=== PATIENT | female | born 1995 | race Caucasian/White ===

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

== ENCOUNTER 2017-10-20 19:39 | Emergency (ER) | payer OTHER ==
[2017-10-20 19:46] VITALS: RESP 18
[2017-10-20] MEDS ORDERED: ONDANSETRON 4 MG/2 ML VIAL IVP ONE ×2 (20:14→21:05)
[2017-10-20] MEDS ORDERED: NS 1,000 ML IV ONE ×2 (20:14→20:42)
[2017-10-20] MEDS ORDERED: ONDANSETRON 4 MG/2 ML VIAL ONE (20:15)
[2017-10-20 20:20] LABS: PLATELET COUNT 312 10^3/uL (150-400)
--- NOTE | 2017-10-20 20:31 | EDPHY ---
H & P Smoking Status: Never smoked Time Seen by Provider: 10/20/17 20:25 HPI/ROS: Chief complaint. Abdominal pain HPI. 22-year-old female presents emergency department with complaint of difficulty urinating for 1 week. She sits on the toilet and nothing happens. She tells me she lost sensation to urinate 7 years ago and needs to urinate on a regular schedule. She had nausea last night. She noticed abdominal bloating this morning. She gradually developed abdominal pain during the day and vomiting. Pain is crampy periumbilical. No diarrhea. She has been constipated. No fever. No chest pain or shortness of breath. ROS Constitutional. no fever/chills, no weakness Eyes. no problems with vision ENT. no sore throat, no nasal drainage Cardiovascular. no chest pain Respiratory. no shortness of breath, no cough Abdominal. Abdominal pain and bloating with nausea and vomiting. Constipation. . Difficulty urinating MS. no calf pain/swelling, no neck/back pain, no joint pain Skin. no rash Lymph. no swollen glands Neuro. no headache, no dizziness, no difficulty walking or with speech (Marquez Lara S) Past Medical/Surgical History: Gastric paresis, GERD, biopsies of stomach (Marquez Lara S) Social History: Single, nonsmoker, no alcohol (Marquez Lara) Physical Exam: General Appearance: Alert well-developed female mild distress vital signs are stable Eyes: Pupils equal and round no pallor or injection. ENT, Mouth: Mucous membranes are moist. Respiratory: There are no retractions, lungs are clear to auscultation. Cardiovascular: Regular rate and rhythm. Gastrointestinal: Abdomen is soft. Periumbilical tenderness. Not particularly tender at McBurney's point. Bowel sounds normal. No masses Neurological: Awake and alert, sensory and motor exams grossly normal. Skin: Warm and dry, no rashes. Musculoskeletal: Neck is supple nontender. Extremities symmetrical, full range of motion. Psychiatric: Patient is oriented X 3, there is no agitation. (Marquez Lara S) Constitutional: Initial Vital Signs Temperature (C) 37.0 C 10/20/17 19:44 Heart Rate 91 10/20/17 19:44 Respiratory Rate 18 10/20/17 19:44 Blood Pressure 126/90 H 10/20/17 19:44 O2 Sat (%) 98 10/20/17 19:44 O2 Delivery Mode Room Air Allergies/Adverse Reactions: fentanyl Allergy (Verified 09/01/16 17:48) Home Medications: Medication Instructions Recorded Control 10/20/17 Cephalexin [Keflex (*)] 500 mg PO Q6H #28 cap 10/20/17 Medical Decision Making - Diagnostics Imaging Results: Upright abdomen shows constipation. No evidence for free air or air-fluid levels. (Marquez Lara) Procedures: IV normal saline. Initial target 2 L. Zofran for nausea (Marquez Lara) ED Course/Re-evaluation: 11:21 p.m.- UA does show evidence of urinary tract infection. I will treat her with Keflex. He will send her urine for culture testing and she can be discharged. ( Ro Heath) Re-evaluation 9:25 p.m. Patient and I discussed x-ray findings, laboratory evaluation, treatment plan including criteria for return importance of follow- up and further evaluation. She expresses understanding and agreement Patient up to urinate. (Marquez Lara) Differential Diagnosis: I considered constipation, urinary tract infection, small-bowel obstruction ( Marquez Lara) - Data Points Laboratory Results: Laboratory Results 10/20/17 20:00 10/20/17 20:00 Microbiology Results: MICROBIOLOGY 10/20/17 21:35 Urine,Catheterized Urine Culture - Preliminary Five Or More [place] Types Staphylococcus Aureus Medications Given: Discontinued Medications Cephalexin (Keflex 500 Mg Prepack#4) 1 btl TAKEHOME EDNOW ONE PRN Reason: Protocol Stop: 10/20/17 23:21 Last Admin: 10/20/17 23:59 Dose: 1 btl Cephalexin HCl (Keflex) 500 mg PO EDNOW ONE PRN Reason: Protocol Stop: 10/20/17 23:21 Last Admin: 10/20/17 23:58 Dose: 500 mg Sodium Chloride (Ns) 1,000 mls @ 3,000 mls/hr IV ONCE ONE Stop: 10/20/17 20:33 Last Admin: 10/20/17 20:16 Dose: 1,000 mls Sodium Chloride (Ns) 1,000 mls @ 0 mls/hr IV EDNOW ONE; Wide Open PRN Reason: Protocol Stop: 10/20/17 20:43 Last Admin: 10/20/17 20:48 Dose: 1,000 mls Ondansetron HCl (Zofran) 4 mg IVP EDNOW ONE Stop: 10/20/17 20:15 Last Admin: 10/20/17 20:17 Dose: 4 mg Ondansetron HCl (Zofran) 4 mg IVP EDNOW ONE Stop: 10/20/17 21:06 Last Admin: 10/20/17 21:07 Dose: 4 mg Departure - Departure Disposition: Home, Routine, Self-Care Clinical Impression: Abdominal pain, UTI (urinary tract infection) Condition: Good Instructions: Constipation (ED), Urinary Tract Infection in Women (DC), High Fiber Diet (ED) Additional Instructions: Increased fluids including fruit and prune juice. MiraLax, alexey Colace from the pharmacy. You may purchase a bottle of magnesium citrate from the grocery store without a prescription. Drink the whole bottle. Again increase fluids. Return for worsening pain, fever, vomiting. Recheck in 2 days if not improved Referrals: Kimberli Haynes MD [Primary Care Provider] - 1 day, if not improved Stand Alone Forms: School Excuse Prescriptions: Cephalexin [Keflex (*)] 500 mg PO Q6H #28 cap
[2017-10-20] MEDS ORDERED: CEPHALEXIN 500 MG CAP PO ONE (23:20)
[2017-10-20] MEDS ORDERED: CEPHALEXIN 500MG PREPACK#4 BTL TAKEHOME ONE (23:20)
[2017-10-21 00:11] VITALS: BP 105/55; PULSE 87; TEMP 98.6; O2SAT 96
== END 2017-10-21 00:11 | disposition home or self-care (01) ==
DX: R10.33 Periumbilical pain (principal); N39.0 Urinary tract infection, site not specified; E86.9 Volume depletion, unspecified; B95.7 Other staphylococcus as the cause of diseases classified elsewhere
CPT/HCPCS: 96374; J2405

== ENCOUNTER 2017-10-28 12:32 | Emergency (ER) | payer OTHER ==
[2017-10-28] MEDS ORDERED: ONDANSETRON 4 MG/2 ML VIAL IVP ONE (12:58)
[2017-10-28] MEDS ORDERED: NS 1,000 ML IV ONE (12:59)
[2017-10-28] MEDS ORDERED: FAMOTIDINE 20 MG/NACL 50 ML IV ONE (13:21)
--- NOTE | 2017-10-28 13:34 | EDPHY ---
H & P Time Seen by Provider: 10/28/17 12:54 HPI/ROS: HPI Nausea vomiting, history of urinary tract infection. 22-year-old female by private vehicle with boyfriend. This patient reports she was seen in the emergency department a week ago this last Thursday. She was diagnosed with gastroparesis which she has a history of as well as a urinary tract infection. She was placed on Keflex for the urinary tract infection. She reports that since this time she has had associated nausea and vomiting. She reports that she was seen by her primary care physician on Thursday with complaint of difficulty urinating. She was referred to [facility]. She was seen at [facility]. She does not remember the clinician she worked with. She reports that a Collazo catheter was placed. She reports that Collazo catheter was then removed yesterday. She reports that yesterday she had some intermittent hematuria. She reports that today she has had continued nausea and vomiting and has not been able to keep any fluids down. She called her primary care physician was told to come to the emergency department for evaluation. She describes having vague back pain as well as vague abdominal pain described as cramping in the lower abdomen as epigastric discomfort. She reports that she self catheterizes. She reports that since the Collazo catheter has been removed she has not been able to urinate on her own. She was instructed on this procedure by [facility]. She also tells me that possibly from a head injury when she was younger she has lost the ability to sense when her bladder is full and feel urgency to urinate. ROS: Constitutional: No fever, no chills. No weakness. Eyes: No discharge. No changes in vision. ENT: No sore throat. No nasal congestion or rhinorrhea. Respiratory: No cough. No shortness of breath. Cardiac: No chest pain, no palpitations. Gastrointestinal: As above, no diarrhea. Genitourinary: As above. No dysuria or increased frequency with urination. As above. Musculoskeletal: No back pain. No neck pain. No myalgias or arthralgias. Skin: No rashes. Neurological: No headache. No focal weakness or altered sensation. Past medical history: Gastroparesis, GERD, biopsies of her stomach, ACL reconstruction. As above. 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 She is here with her boyfriend. Denies smoking. Denies alcohol. Physical Exam: General Appearance: Alert, pleasant 22-year-old female, no distress. This patient is responding to questions appropriately and in full sentences. This patient appears well-hydrated and well-nourished. Eyes: Pupils equal and round no pallor or injection. No lid edema, erythema or injection. Respiratory: There are no retractions, lungs are clear to auscultation with good air movement bilaterally. Cardiovascular: Regular rate and rhythm. No murmur. Gastrointestinal: Abdomen is soft with vague and mild tenderness on palpation throughout, no masses, bowel sounds normal. No focal tenderness at McBurney's point. No Lora sign. Neurological: Motor sensory function is grossly intact. Cranial nerves are normal. Gait is normal. Skin: Warm and dry, no rashes. Musculoskeletal: Neck is supple and nontender. Mild CVA tenderness bilaterally. Extremities are symmetrical. All joints range without pain or impingement. Psychiatric: No agitation. No depression. Database: EKG: Imaging: Procedures: Emergency department course: IV placed. She was started on IV normal saline with 1-2 L to be given over the next 1-2 hours. She was initially given 4 mg of IV Zofran and 20 mg of IV Pepcid. Urinalysis to be obtained. Vital signs reviewed and are normal. She is afebrile. 2:55 p.m., patient re-evaluated. She is resting comfortably at this time. I discussed the results of her lab work. Her blood work and urinalysis are unremarkable. No red flags. No indication for antibiotics at this time. She has already spoken with her primary care physician who has reviewed her emergency department workup. She will follow up with her primary care physician for further evaluation and management as needed. She feels comfortable going home. Return to emergency department precautions have been discussed with her. All of her questions were answered. She was discharged in good condition. Her vital signs have remained normal throughout her emergency department course. Differential Diagnosis: The differential diagnosis on this patient includes but is not limited to urinary tract infection/pyelonephritis, gastritis, pancreatitis. Bowel obstruction, cholecystitis, appendicitis unlikely. This represents a partial list of diagnoses considered. These considerations are based on history, physical exam, past history, reassessment and diagnostic testing. Smoking Status: Never smoked Constitutional: Initial Vital Signs Temperature (C) 37.3 C 10/28/17 12:44 Heart Rate 95 10/28/17 12:44 Respiratory Rate 16 10/28/17 12:44 Blood Pressure 118/90 H 10/28/17 12:44 O2 Sat (%) 97 10/28/17 12:44 O2 Delivery Mode Room Air Allergies/Adverse Reactions: fentanyl Allergy (Verified 10/28/17 12:43) Home Medications: Medication Instructions Recorded Control 10/20/17 Ondansetron Odt [Zofran Odt 4 mg 4 mg PO Q4PRN PRN #10 tab 10/28/17 (*)] Medical Decision Making - Data Points Laboratory Results: Laboratory Results 10/28/17 12:43 10/28/17 12:43 10/28/17 10/28/17 10/28/17 13:55 12:43 12:43 WBC RBC Hgb Hct MCV MCH MCHC RDW Plt Count Sodium Potassium Chloride Carbon Dioxide Anion Gap BUN Creatinine Estimated GFR Glucose Calcium Total Bilirubin AST ALT Alkaline Phosphatase Total Protein Albumin Lipase 54 IU/L IU/L (23-300) Beta HCG, Qual NEGATIVE Urine Color YELLOW Urine Appearance HAZY Urine pH 7.0 (5.0-7.5) Ur Specific [place] 1.027 (1.002-1.030) Urine Protein NEGATIVE (NEGATIVE) Urine Ketones NEGATIVE (NEGATIVE) Urine Blood 2+ H (NEGATIVE) Urine Nitrate NEGATIVE (NEGATIVE) Urine Bilirubin NEGATIVE (NEGATIVE) Urine Urobilinogen 2.0 EU H EU (0.2-1.0) Ur Leukocyte Esterase NEGATIVE (NEGATIVE) Urine RBC 1-3 /hpf /hpf (0-3) Urine WBC 1-3 /hpf /hpf (0-3) Ur Epithelial Cells 1+ /lpf /lpf (NONE-1+) Urine Mucus TRACE /lpf /lpf (NONE-1+) Urine Glucose NEGATIVE (NEGATIVE) 10/28/17 10/28/17 12:43 12:43 WBC 8.23 10^3/uL 10^3/uL (3.80-9.50) RBC 4.72 10^6/uL 10^6/uL (4.18-5.33) Hgb 14.3 g/dL g/dL (12.6-16.3) Hct 41.7 % % (38.0-47.0) MCV 88.3 fL fL (81.5-99.8) MCH 30.3 pg pg (27.9-34.1) MCHC 34.3 g/dL g/dL (32.4-36.7) RDW 11.9 % % (11.5-15.2) Plt Count 335 10^3/uL 10^3/uL (150-400) Sodium 144 mEq/L mEq/L (135-145) Potassium 4.5 mEq/L mEq/L (3.5-5.2) Chloride 105 mEq/L mEq/L (97-110) Carbon Dioxide 25 mEq/l mEq/l (22-31) Anion Gap 14 mEq/L mEq/L (8-16) BUN 14 mg/dL mg/dL (7-23) Creatinine 0.8 mg/dL mg/dL (0.6-1.0) Estimated GFR > 60 Glucose 85 mg/dL mg/dL (70-100) Calcium 9.7 mg/dL mg/dL (8.5-10.4) Total Bilirubin 1.0 mg/dL mg/dL (0.1-1.4) AST 27 IU/L IU/L (14-46) ALT 32 IU/L IU/L (9-52) Alkaline Phosphatase 39 IU/L IU/L (38-126) Total Protein 7.7 g/dL g/dL (6.3-8.2) Albumin 4.8 g/dL g/dL (3.5-5.0) Lipase Beta HCG, Qual Urine Color Urine Appearance Urine pH Ur Specific [place] Urine Protein Urine Ketones Urine Blood Urine Nitrate Urine Bilirubin Urine Urobilinogen Ur Leukocyte Esterase Urine RBC Urine WBC Ur Epithelial Cells Urine Mucus Urine Glucose Medications Given: Discontinued Medications Sodium Chloride (Ns) 1,000 mls @ 0 mls/hr IV ONCE ONE PRN Reason: Wide Open Stop: 10/28/17 13:00 Last Admin: 10/28/17 13:02 Dose: 1,000 mls Famotidine/Sodium Chloride (Pepcid 20 Mg (Premix)) 50 mls @ 200 mls/hr IV EDNOW ONE Stop: 10/28/17 13:35 Last Admin: 10/28/17 13:45 Dose: 50 mls Ondansetron HCl (Zofran) 4 mg IVP EDNOW ONE Stop: 10/28/17 12:59 Last Admin: 10/28/17 13:03 Dose: 4 mg Departure - Departure Disposition: Home, Routine, Self-Care Clinical Impression: Nausea and vomiting Condition: Good Instructions: Acute Nausea and Vomiting (ED) Additional Instructions: Read and follow provided instructions. Follow-up with your primary care physician in 1-2 days for re-evaluation. Take medication as prescribed for nausea. Return to the emergency department for worsening symptoms, fever, worsening abdominal pain, vomiting and inability to keep fluids down despite medications or other serious concerns. Referrals: Kimberli Haynes MD [Primary Care Provider] - As per Instructions Prescriptions: Ondansetron Odt [Zofran Odt 4 mg (*)] 4 mg PO Q4PRN PRN #10 tab PRN Reason: For Nausea & Vomiting
[2017-10-28 15:12] VITALS: BP 111/53
== END 2017-10-28 15:12 | disposition home or self-care (01) ==
DX: R11.2 Nausea with vomiting, unspecified (principal)
CPT/HCPCS: 96365; J2405

== ENCOUNTER 2017-11-03 15:55 | Observation (INO) | payer OTHER ==
--- NOTE | 2017-11-03 16:32 | EDPHY ---
H & P Stated Complaint: n/v Time Seen by Provider: 11/03/17 16:31 HPI/ROS: HPI: This is a 22-year-old female who presents with Chief Complaint: Nausea vomiting Location: GI Quality: Nausea vomiting Duration: 3 weeks Signs and Symptoms: no fever, + nausea, + vomiting, no hematemesis, no blood in stool, no abdominal bloating, no diarrhea, no back pain, no urinary symptoms, no vaginal bleeding/discharge, no indigestion, no chest pain, no shortness of breath Timing: Occurs several times per day Severity: Moderate to severe Context: Patient has a history of GERD, gastroparesis, self-catheterizations secondary to losing sensation to urinated approximately 7 years ago with her 3rd ER visit in 3 weeks for complaints of continue nausea and vomiting occurring up to 10 times per day and unable to keep any food or drink down. Patient was seen in the emergency room on 10/20/2017 and had an abdominal x-ray that showed moderate stool burden. She was then seen on 10/28/2017 with resolution of nausea vomiting with ant-emetics in the emergency room. She went to see [facility] in [place] today and set up for pill study as well as colonoscopy outpatient. She reports that she was given multiple with pills that did not help. Her primary care provider called emergency room prior to arrival indicating that she is being treated for urinary tract infection at this time that is susceptible to cephalosporins. They are requesting for her to have 1 g Rocephin while she is in the emergency room. LMP 2-3 weeks ago. Patient denies any drug use/NSAID use. Patient is on oral control. Last bowel movement 4 days ago. Modifying Factors: See above Comment: ROS: see HPI Constitutional: No fever, no chills, no weight loss Eyes: No blurred vision Respiratory: No shortness of breath, no cough Cardiovascular: No chest pain, no palpitations Gastrointestinal: + nausea, + vomiting, no diarrhea, no hematemesis, no blood in stool Genitourinary: No dysuria, no blood in urine Extremities: No myalgias, no edema Neurologic: No weakness, no numbness Skin: No rashes, no petechiae Hematologic: No bruising, no bleeding MEDICAL/SURGICAL/SOCIAL HISTORY: Medical/surgical history: gastroparesis, GERD, ACL RECONSTRUCTION X 2, TOTAL KNEE SX X 4, self caths, BIOPSIES OF STOMACH Social history: Student. CONSTITUTIONAL: Extremely well-appearing young adult white female, awake and alert, no obvious distress HEENT: Atraumatic and normocephalic, PERRL, EOMI. Tympanic membranes clear. Oropharynx clear, no exudate and moist pink mucosa. Airway patent. No lymphadenopathy. No meningismus. Cardiovascular: Normal S1/S2, regular rate, regular rhythm, without murmur rub or gallop. PULMONARY/CHEST: Symmetrical and nontender. Clear to auscultation bilaterally. Good air movement. No accessory muscle usage. ABDOMEN: Soft, nondistended, moderate epigastric tenderness, no McBurney's point sign, no rebound, no guarding, no peritoneal signs, no masses or organomegaly. No CVAT. EXTREMITIES: 2/2 pulses, strength 5/5, no deformities, no clubbing, no cyanosis or edema. NEUROLOGICAL: no focal neuro deficits. GCS 15. SKIN: Warm and dry, no erythema. no rash. Good capillary refill. Source: Patient, Old records Exam Limitations: No limitations - Personal History LMP (Females 10-55): 22-28 Days Ago Current Tetanus/Diphtheria Vaccine: Yes Current Tetanus Diphtheria and Acellular Pertussis (TDAP): Yes Tetanus Vaccine Date: < 10 YEARS - Medical/Surgical History Hx Asthma: No Hx Chronic Respiratory Disease: No Hx Diabetes: No Hx Cardiac Disease: No Hx Renal Disease: No Hx Cirrhosis: No Hx Alcoholism: No Hx HIV/AIDS: No Hx Splenectomy or Spleen Trauma: No Other PMH: gastroparesis, GERD, ACL RECONSTRUCTION X 2, TOTAL KNEE SX X 4, self caths, BIOPSIES OF STOMACH - Social History Smoking Status: Never smoked Constitutional: Initial Vital Signs Temperature (C) 37.1 C 11/03/17 15:58 Heart Rate 79 11/03/17 15:58 Respiratory Rate 16 11/03/17 15:58 Blood Pressure 114/65 11/03/17 15:58 O2 Sat (%) 96 11/03/17 15:58 O2 Delivery Mode Room Air Allergies/Adverse Reactions: fentanyl Allergy (Verified 11/03/17 15:58) Home Medications: Medication Instructions Recorded Control 10/20/17 Ondansetron Odt [Zofran Odt 4 mg 4 mg PO Q4PRN PRN #10 tab 10/28/17 (*)] Medical Decision Making - Diagnostics Imaging Results: Imaging Impressions Abdomen CT 11/03/17 16:52 Impression: 1. Normal retrocecal appendix. 2. Mild constipation. Findings were discussed with Dr. Marquez Lara, who will further discuss the findings with Sabrina Otero PA-C, at 18:07, on 11/03/2017. ED Course/Re-evaluation: Urinalysis, labs, IV fluids, IV medications, CT abdomen and pelvis scan ordered Doubt female abdominal pain etiology. Vital signs reviewed and stable. No systemic signs. Given 1 L normal saline, IV Rocephin, IV Haldol, IV Reglan, IV Benadryl, IV Pepcid 1759: Labs reviewed; no signs of anemia/a KI/elevated LFTs/electrolyte imbalance/. Urinalysis shows trace LE, trace bacteria, 10-15 WBC; sent for urine culture; given 1 g Rocephin. 1814: Called by radiologist who advised that CT abdomen and pelvis scan shows normal appendix and constipation 1820: Reassessed patient who reports that she still has continue nausea and has vomited once since the medication. IV promethazine 12.5 mg ordered ED decision to consult for admission for intractable nausea vomiting. Spoke with Dr. Pratt who agrees to admit patient for further care. Gastroenterology consult. Spoke with Dr. Sanders who kindly agrees to consult on the patient. This patient was seen under the supervision of my secondary supervising physician. I evaluated care for this patient independently. Discussed this patient with Dr. Dukes who did not see the patient. Differential Diagnosis: Abdominal pain including but not limited to appendicitis, cholecystitis, gastritis and urinary tract infection. - Data Points Laboratory Results: Laboratory Results 11/03/17 16:53 11/03/17 16:53 11/03/17 11/03/17 11/03/17 17:15 16:53 16:53 WBC RBC Hgb Hct MCV MCH MCHC RDW Plt Count MPV Neut % (Auto) Lymph % (Auto) [place] % (Auto) Eos % (Auto) Baso % (Auto) Nucleat RBC Rel Count Absolute Neuts (auto) Absolute Lymphs (auto) Absolute Monos (auto) Absolute Eos (auto) Absolute Basos (auto) Absolute Nucleated RBC Immature Gran % Immature Gran # Sodium 142 mEq/L mEq/L (135-145) Potassium 4.4 mEq/L mEq/L (3.5-5.2) Chloride 105 mEq/L mEq/L (97-110) Carbon Dioxide 26 mEq/l mEq/l (22-31) Anion Gap 11 mEq/L mEq/L (8-16) BUN 17 mg/dL mg/dL (7-23) Creatinine 0.8 mg/dL mg/dL (0.6-1.0) Estimated GFR > 60 Glucose 87 mg/dL mg/dL (70-100) Calcium 9.0 mg/dL mg/dL (8.5-10.4) Total Bilirubin 0.8 mg/dL mg/dL (0.1-1.4) Conjugated Bilirubin 0.5 mg/dL mg/dL (0.0-0.5) Unconjugated Bilirubin 0.3 mg/dL mg/dL (0.0-1.1) AST 24 IU/L IU/L (14-46) ALT 29 IU/L IU/L (9-52) Alkaline Phosphatase 35 IU/L L IU/L (38-126) Total Protein 6.8 g/dL g/dL (6.3-8.2) Albumin 4.1 g/dL g/dL (3.5-5.0) Lipase 50 IU/L IU/L (23-300) Beta HCG, Qual NEGATIVE Urine Color YELLOW Urine Appearance HAZY Urine pH 7.0 (5.0-7.5) Ur Specific [place] 1.027 (1.002-1.030) Urine Protein 1+ H (NEGATIVE) Urine Ketones NEGATIVE (NEGATIVE) Urine Blood 3+ H (NEGATIVE) Urine Nitrate NEGATIVE (NEGATIVE) Urine Bilirubin NEGATIVE (NEGATIVE) Urine Urobilinogen 2.0 EU H EU (0.2-1.0) Ur Leukocyte Esterase TRACE H (NEGATIVE) Urine RBC 3-5 /hpf H /hpf (0-3) Urine WBC 10-15 /hpf H /hpf (0-3) Ur Epithelial Cells 1+ /lpf /lpf (NONE-1+) Urine Bacteria TRACE /hpf H /hpf (NONE SEEN) Urine Mucus TRACE /lpf /lpf (NONE-1+) Urine Glucose NEGATIVE (NEGATIVE) 11/03/17 16:53 WBC 8.25 10^3/uL 10^3/uL (3.80-9.50) RBC 4.34 10^6/uL 10^6/uL (4.18-5.33) Hgb 13.1 g/dL g/dL (12.6-16.3) Hct 39.0 % % (38.0-47.0) MCV 89.9 fL fL (81.5-99.8) MCH 30.2 pg pg (27.9-34.1) MCHC 33.6 g/dL g/dL (32.4-36.7) RDW 12.0 % % (11.5-15.2) Plt Count 291 10^3/uL 10^3/uL (150-400) MPV 9.7 fL fL (8.7-11.7) Neut % (Auto) 61.5 % % (39.3-74.2) Lymph % (Auto) 32.2 % % (15.0-45.0) [place] % (Auto) 4.8 % % (4.5-13.0) Eos % (Auto) 0.7 % % (0.6-7.6) Baso % (Auto) 0.4 % % (0.3-1.7) Nucleat RBC Rel Count 0.0 % % (0.0-0.2) Absolute Neuts (auto) 5.07 10^3/uL 10^3/uL (1.70-6.50) Absolute Lymphs (auto) 2.66 10^3/uL 10^3/uL (1.00-3.00) Absolute Monos (auto) 0.40 10^3/uL 10^3/uL (0.30-0.80) Absolute Eos (auto) 0.06 10^3/uL 10^3/uL (0.03-0.40) Absolute Basos (auto) 0.03 10^3/uL 10^3/uL (0.02-0.10) Absolute Nucleated RBC 0.00 10^3/uL 10^3/uL (0-0.01) Immature Gran % 0.4 % % (0.0-1.1) Immature Gran # 0.03 10^3/uL 10^3/uL (0.00-0.10) Sodium Potassium Chloride Carbon Dioxide Anion Gap BUN Creatinine Estimated GFR Glucose Calcium Total Bilirubin Conjugated Bilirubin Unconjugated Bilirubin AST ALT Alkaline Phosphatase Total Protein Albumin Lipase Beta HCG, Qual Urine Color Urine Appearance Urine pH Ur Specific [place] Urine Protein Urine Ketones Urine Blood Urine Nitrate Urine Bilirubin Urine Urobilinogen Ur Leukocyte Esterase Urine RBC Urine WBC Ur Epithelial Cells Urine Bacteria Urine Mucus Urine Glucose Medications Given: Discontinued Medications Diphenhydramine HCl (Benadryl Injection) 25 mg IVP EDNOW ONE Stop: 11/03/17 16:50 Last Admin: 11/03/17 17:18 Dose: 25 mg Haloperidol Lactate (Haldol Injection) 2.5 mg IVP EDNOW ONE Stop: 11/03/17 16:50 Last Admin: 11/03/17 17:18 Dose: 2.5 mg Sodium Chloride (Ns) 1,000 mls @ 0 mls/hr IV EDNOW ONE; Wide Open PRN Reason: Protocol Stop: 11/03/17 16:48 Last Admin: 11/03/17 17:18 Dose: 1,000 mls Famotidine/Sodium Chloride (Pepcid 20 Mg (Premix)) 50 mls @ 200 mls/hr IV EDNOW ONE Stop: 11/03/17 17:01 Last Admin: 11/03/17 17:17 Dose: 50 mls Ceftriaxone Sodium/Dextrose (Rocephin 1 Gm (Premix)) 50 mls @ 100 mls/hr IV EDNOW ONE PRN Reason: Protocol Stop: 11/03/17 17:21 Last Admin: 11/03/17 17:17 Dose: 50 mls Metoclopramide HCl (Reglan Injection) 10 mg IVP EDNOW ONE Stop: 11/03/17 16:50 Last Admin: 11/03/17 17:18 Dose: 10 mg Promethazine HCl (Phenergan) 12.5 mg IVP ONCE ONE Stop: 11/03/17 18:33 Last Admin: 11/03/17 18:56 Dose: 12.5 mg Departure - Departure Disposition: [facility] Inpatient Acute Clinical Impression: Gastroparesis Intractable nausea and vomiting Qualifiers: Vomiting type: cyclical vomiting Qualified Code(s): G43.A1 - Cyclical vomiting , intractable Condition: Fair
[2017-11-03] MEDS ORDERED: FAMOTIDINE 20 MG/NACL 50 ML IV ONE (16:47)
[2017-11-03] MEDS ORDERED: NS 1,000 ML IV ONE (16:47)
[2017-11-03] MEDS ORDERED: HALOPERIDOL LACT 5 MG/ML INJ IVP ONE (16:49)
[2017-11-03] MEDS ORDERED: METOCLOPRAMIDE 10 MG/2 ML VIAL IVP ONE (16:49)
[2017-11-03 17:03] LABS: PLATELET COUNT 291 10^3/uL (150-400)
[2017-11-03] MEDS ORDERED: IOPAMIDOL (ISOVUE-300) 100 ML BTL ONE (17:31)
[2017-11-03] MEDS ORDERED: PROMETHAZINE HCL 25 MG/ML INJ IVP ONE (18:32)
[2017-11-03] MEDS ORDERED: LORazepam 1 MG TAB PO ONE (20:00)
[2017-11-03] MEDS ORDERED: LORazepam 1 MG TAB ONE (20:01)
[2017-11-03] MEDS ORDERED: POLYETHYLENE GLYCOL 3350 17 GM PKT PO PRN (22:23)
[2017-11-03] MEDS ORDERED: MAGNESIUM HYDROXIDE 30 ML UDCUP PO PRN (22:23)
[2017-11-03] MEDS ORDERED: BISACODYL 10 MG SUPP PR PRN (22:23)
[2017-11-03] MEDS ORDERED: LACTULOSE 20 GM/30 ML UDCUP PO PRN (22:23)
[2017-11-03] MEDS ORDERED: PROMETHAZINE HCL 25 MG/ML INJ IVP PRN (22:25)
[2017-11-03] MEDS ORDERED: ACETAMINOPHEN 325 MG TAB PO PRN (22:25)
[2017-11-03] MEDS ORDERED: KETOROLAC 30 MG/1 ML SDV IVP PRN (22:25)
--- NOTE | 2017-11-03 23:18 | GHP ---
[f rep st] HISTORY AND PHYSICAL DATE OF ADMISSION: 11/03/2017 CHIEF COMPLAINT: Vomiting. HISTORY: The patient is a 22-year-old female, who has had persistent nausea and vomiting for the las t 3 weeks. She saw Gastroenterology as an outpatient today. Reportedly they scheduled her for capsu le endoscopy and colonoscopy. They gave her oral medications to treat constipation. She vomited tho se medications up and came to the emergency room. According to her boyfriend, she has been eating ve ry little due to persistent vomiting for weeks. Her primary care doctor diagnosed her with a urinary tract infection and prescribed oral Keflex; however, she has been vomiting up the oral antibiotics. Her primary care doctor called the ER and asked them to give her IV ceftriaxone, which presumably th ey have culture results showing sensitivity. The patient is now completely sedated, unable to give a ny history, and all history is obtained through the patient's boyfriend and mom. In the emergency ro om, she obtained 1 mg IV Ativan, IV Phenergan, IV Benadryl, IV Haldol, IV Reglan, IV Pepcid, and is n ow difficult to arouse. PAST MEDICAL HISTORY: GERD, gastroparesis, chronic self-catheterization. MEDICATIONS: Please see computer record for full detailed list. ALLERGIES: Fentanyl. SOCIAL HISTORY: No smoking. No alcohol. She is a student at . Lives with a roommate. Mom lives locally in [place]. REVIEW OF SYSTEMS: Complete review of systems obtained. Review of systems is negative regarding con stitutional, HEENT, GI, pulmonary, cardiovascular, , hematology, skin, musculoskeletal, endocrine, psych, except for positives and negatives as noted in HPI. FAMILY HISTORY: Reviewed and noncontributory to presenting complaint. PHYSICAL EXAMINATION: GENERAL: Well-developed, well-nourished female, somnolent, in no acute distre ss. VITAL SIGNS: Temperature 37.1, pulse 56, blood pressure 95/57, satting 96% on room air. EYES: Normal conjunctivae. Pupils are equal, round, reactive to light. ENT: Normal ears and nose. Hear ing intact. Normal lips and teeth. Oropharynx moist. NECK: Trachea midline. No thyromegaly. LAN ST: Normal respiratory effort. LUNGS: Clear to auscultation bilaterally. CARDIOVASCULAR: Regular rate and rhythm. No murmur. No lower extremity edema. ABDOMEN: Soft. Nontender. No hepatosplen omegaly. SKIN: Warm, dry, intact. No rash. MUSCULOSKELETAL: No cyanosis or clubbing. Strength 5 /5 upper and lower extremities. NEUROLOGIC: Cranial nerves intact. Normal sensation to light touch . PSYCH: Alert and oriented x3. Normal mood and affect. Normal judgment and insight. Normal carolin ry. LABORATORY DATA: White count 8.25, hematocrit 39.0, platelets 291. Sodium 142, potassium 4.4, chlor eddy 105, bicarb 26, BUN 17, creatinine 0.8, glucose 87. LFTs are negative. test is negati ve. Urinalysis shows 10-15 white blood cells. IMAGING DATA: CT scan of the abdomen and pelvis shows mild constipation. This case was discussed with Dr. Jesus Alberto Dukes in the emergency room. He spoke with Dr. Sanders of Gastroenterology to consult. ASSESSMENT AND PLAN: 1. Intractable nausea, vomiting for 3 weeks. Gastroenterology has been called by the emergency room and will see her in consultation in the morning. They are already following as an outpatient. Nohelia oz for tonight will be supportive. She clearly has poor gastric motility with her history of robin roparesis and constipation. Will, therefore, avoid narcotics as this will worsen this. Will put her on a bowel regimen for constipation. Could consider adding Reglan for her gastroparesis. We need t o consider the side effect profile. 2. Urinary tract infection. This was diagnosed as an outpatient. Per primary care, intravenous cef triaxone is requested. She has vomited up all attempts at oral antibiotics. Will check urine cultur e result with primary care assuming they are currently available. 3. Chronic self-catheterization. She has been self-catheterizing for 7 years. She follows with Uro logy. We can continue to straight catheterization as needed here. CODE STATUS: Full. ADMISSION STATUS: Will admit to observation. Will re-evaluate tomorrow regarding ongoing hospitaliz ation. DEEP VEIN THROMBOSIS PROPHYLAXIS: She is low risk. Will hold off on pharmacologic prophylaxis at th is time. /[id number]/MODL
[2017-11-03] MEDS: NS 1,000 ML IV SCH (23:35)
[2017-11-04] MEDS: ONDANSETRON 4 MG/2 ML VIAL IVP PRN ×2 (08:58→16:32)
[2017-11-04] MEDS ORDERED: SENNOSIDES/DOCUSATE SODIUM TAB PO SCH (09:00)
[2017-11-04] MEDS: NS 1,000 ML IV SCH (10:13)
[2017-11-04] MEDS ORDERED: LR 1,000 ML IV ONE (12:49)
--- NOTE | 2017-11-04 12:55 | PDANEPAE ---
ANE History of Present Illness 22 year old female for EGD due to intractable nausea. ANE Past Medical History - Cardiovascular History Hx Hypertension: No Hx Arrhythmias: No Hx Chest Pain: No Hx Coronary Artery / Peripheral Vascular Disease: No Hx CHF / Valvular Disease: No Hx Palpitations: No - Pulmonary History Hx COPD: No Hx Asthma/Reactive Airway Disease: No Hx Recent Upper Respiratory Infection: No Hx Oxygen in Use at Home: No Hx Sleep Apnea: No Sleep Apnea Screening Result - Last Documented: Negative - Neurologic History Hx Cerebrovascular Accident: No Hx Seizures: No Hx Dementia: No - Endocrine History Hx Diabetes: No Hypothyroid: No Hyperthyroid: No Obesity: no - Renal History Hx Renal Disorders: No - Liver History Hx Hepatic Disorders: No - Neurological & Psychiatric Hx Hx Neurological and Psychiatric Disorders: No - Cancer History Hx Cancer: No - Congenital Disorder History Hx Congenital Disorders: No - GI History GERD: no Hx Gastrointestinal Disorders: No - Chronic Pain History Chronic Pain: No ANE Review of Systems Review of systems is: negative Review of Systems: - Exercise capacity Exercise capacity: >=4 METS ANE Patient History - Allergies Allergies/Adverse Reactions: fentanyl Allergy (Verified 11/03/17 15:58) - Home Medications Home medications: home medication list seen and reviewed Home Medications: Control 1 tab PO DAILY 10/20/17 [Last Taken 11/02/17] - NPO status NPO Status: no food or drink >8 hours NPO Since - Liquids (Date): 11/04/17 NPO Since - Liquids (Time): 00:00 NPO Since - Solids (Date): 11/04/17 NPO Since - Solids (Time): 00:00 - Anes Hx Anes Hx: no prior problems - Smoking Hx Smoking Status: Never smoked Marijuana use: No - Alcohol Use Alcohol Use: None - Family Anes Hx Family Anes Hx: neg - N/A ANE Labs/Vital Signs - Labs Result Diagrams: 11/03/17 16:53 11/03/17 16:53 - Vital Signs Vital Signs: reviewed preoperatively; see RN documention for details Blood Pressure: 103/66 Heart Rate: 60 Respiratory Rate: 14 O2 Sat (%): 96 Height: 152.4 cm Weight: 54.4 kg ANE Physical Exam - Airway Neck exam: FROM Mallampati Score: Class 2 Mouth exam: normal dental/mouth exam - Pulmonary Pulmonary: no respiratory distress - Cardiovascular Cardiovascular: regular rate and rhythym - ASA Status ASA Status: II ANE Anesthesia Plan Anesthesia Plan: GA with mask Total IV Anesthesia: Yes
--- NOTE | 2017-11-04 12:56 | PDGENHP ---
History & Physical Chief Complaint: N/V History of Present Illness: long h/o constipation and N/V and gastropareisis Pertinent Past, Social, Family History: No MJ Relevant Physical Exam: Cv rrr s1s2 nl. chest CTA. abd soft Cardiorespiratory Assessment: asa11
[2017-11-04] MEDS ORDERED: LR 1,000 ML IV SCH (13:00)
[2017-11-04] MEDS ORDERED: PROPOFOL/EMULSION 500 MG/50 ML BOTTLE IV ONE (13:04)
[2017-11-04] MEDS ORDERED: ONDANSETRON 4 MG/2 ML VIAL ONE (13:21)
[2017-11-04] MEDS ORDERED: DEXAMETHASONE 4 MG/ML VIAL ONE (13:21)
--- NOTE | 2017-11-04 13:22 | GCON ---
[f rep st] CONSULTATION DATE OF CONSULTATION: 11/04/2017 REFERRING PHYSICIAN: Charis Pratt MD CHIEF COMPLAINT: Nausea and vomiting. HISTORY OF PRESENT ILLNESS: I am asked to see this patient in consultation by Dr. Pratt for a chief complaint of nausea and vomiting. She is a 22-year-old with extensive GI history, recently seen yest erday in our office for evaluation of chronic constipation, nausea, and vomiting. Patient has been h aving worsening nausea and vomiting for the past 3 weeks with difficulty taking down clear liquids an d p.o.'s. She does have a long history of GI symptoms, primarily with chronic constipation, since sh zaire was young. Has had evaluation at outside facility with multiple procedures, although we do not hav zaire all the records. Her procedures have included an upper endoscopy around 2009 that was reportedly n ormal. She had a gastric emptying test that was delayed. She has tried, she states, multiple laxati ves including MiraLAX and Linzess, although she is not sure if she has tried Amitiza and was given a prescription for Trulance yesterday, although has not yet tried it. She has bouts of nausea and vomi ting intermittently. Typically last about a week and resolve. This one has been more prolonged, las ting about 3 weeks. She does have a feeling of GERD but no dysphagia. There has been no hematemesis . No melena or blood in her stools. Patient was recently found to have a UTI. ALLERGIES: Fentanyl. OUTPATIENT MEDICATIONS: Ondansetron, control pills. PAST MEDICAL HISTORY: Notable for gastroparesis, constipation, GERD, and patient requires self-bladd er catheterization for urinary retention. SOCIAL HISTORY: Patient denies alcohol. FAMILY HISTORY: Notable for colon cancer in second-degree relatives. REVIEW OF SYSTEMS: I performed a complete review of systems, which is negative except for the pertin ent negatives and positives noted in the HPI. PHYSICAL EXAM: VITAL SIGNS: Afebrile at 37.2, BP 103/66, pulse 60. CONSTITUTIONAL: She is alert a nd oriented. EYES: No scleral icterus. CARDIOVASCULAR: Regular rhythm. HEENT: No oral lesions. CHEST: Clear to auscultation. GI: She is tender to even very light palpation over the epigastric area but no rebound. NEUROLOGIC: Nonfocal. SKIN: No rashes. LABORATORY DATA: CBC within normal limits. CT scan shows mild constipation. ASSESSMENT: 1. Nausea and vomiting. Suspect this is acute on chronic situation. She has been diagnosed with ga stroparesis in the past. Reason for acute exacerbation is unclear. However, she has recently been d iagnosed with a urinary tract infection, and this could be contributing. Also consider a structural abnormality or gastric ulcer disease that I think is less likely. However, it has been 8 years since her last upper endoscopy. It may be reasonable to repeat. 2. Constipation. I suspect the patient has a more global gastrointestinal dysmotility problem with difficult to control constipation, although she is in the process of an outpatient workup. PLAN: 1. Recommend to treat UTI. 2. Suggest upper endoscopy, which we can arrange this hospitalization to assure no gastritis or robin pilar ulcer disease or gastric outlet obstruction. 3. Treat her nausea and vomiting with antiemetics. Agree with Reglan for now in the short term. 4. Once patient has improved from this acute exacerbation of her nausea and vomiting, then she shoul d follow up with GI as an outpatient to complete her ongoing evaluation. Thank you for this consult. /[id number]/MODL
--- NOTE | 2017-11-04 13:25 | GIREPORT ---
[facility] - Endoscopy Department Patient Name: Griselda Levine Procedure Date: 11/04/2017 12:57 PM Patient Type: Inpatient Attending MD/ ER Physician: Asia Sanders MD Procedure: Upper GI endoscopy Indications: Nausea with vomiting Providers: Asia Sanders MD Medicines: Monitored Anesthesia Care Complications: No immediate complications. Description of Procedure: After obtaining informed consent, the endoscope was passed under direct vision. Throughout the procedure, the patient's blood pressure, pulse, and oxygen saturations were monitored continuously. The Endoscope was intro duced through the mouth, and advanced to the second part of duodenum. The [facility] er GI endoscopy was accomplished without difficulty. The patient tolerated th e procedure well. Findings: The esophagus was normal. The entire examined stomach was normal. Biopsies were taken with a cold forceps for histology. Estimated blood loss was minimal. The examined duodenum was normal. Biopsies for histology were taken wit h a cold forceps for evaluation of celiac disease. Estimated blood loss was minimal. Estimated Blood Loss: Estimated blood loss was minimal. Post Op Diagnosis: - Normal esophagus. - Normal stomach. Biopsied. - Normal examined duodenum. Biopsied. Recommendation: - Await pathology results. - Clear liquid diet. - Return patient to [facility] for ongoing care. - Will give enema for constipation today. - Ok to discharge home when able to tolerate PO with follow up in GI to complete outpatient evaluation in progress. - Will sign off for now. - Thank you for allowing me to participate in the care of your patient. Attending Participation: I personally performed the entire procedure. Asia Sanders MD Asia Sanders MD 11/04/2017 1:24:54 PM This report has been signed electronicallyAsia Sanders MD Number of Addenda: 0 Note Initiated On: 11/04/2017 12:57 PM [email or web address]
--- NOTE | 2017-11-04 13:28 | POSTANESTH ---
Post Anesthetic Evaluation Cardiovascular Status: Normal, Stable, Similar to Pre-Op Cond Respiratory Status: Normal, Stable, Similar to Pre-op Cond. Level of Consciousness/Mental Status: Can Participate in Eval, Alert and Oriented Pain Control: Adequate, Prn Tx Ordered Nausea/Vomiting Control: Adequate, Prn Tx Ordered Complications Possibly Related to Anesthesia: None Noted
[2017-11-04] MEDS ORDERED: NALOXONE HCL 0.4 MG/ML INJ IVP PRN (13:29)
[2017-11-04] MEDS ORDERED: LR 500 ML IV PRN (13:29)
[2017-11-04] MEDS ORDERED: PHENYLEPHRINE HCL 100 MCG/ML SYR IVP PRN (13:29)
[2017-11-04] MEDS ORDERED: epHEDrine SULFATE 10 MG/ML SYR IVP PRN (13:29)
[2017-11-04] MEDS ORDERED: ONDANSETRON 4 MG/2 ML VIAL IVP PRN (13:29)
--- NOTE | 2017-11-04 13:29 | SUROPNOTE ---
[facility] Operative Report - Surgery PRovation report not in chart. EGD with MAC sedation Finding: Normal exam gastric and duodenal biopsies taken plan: Await path Advance diet Trial of enema today OK to discharge home when tolerating PO with GI follow up, will sign off
[2017-11-04] MEDS ORDERED: MAGNESIUM CITRATE 300 ML BOTTLE PO ONE (14:55)
--- NOTE | 2017-11-04 14:55 | HOSPPROG ---
Hospitalist Progress Note Assessment/Plan: 22 yo F w gastroparesis, n/vom n/vom: notably not volume depleted on exam egd unremarkable trial of diet now constipation: longstanding mag citrate to try at home uti: 10/28 ua w no pyuria, + culture noted no irritative voiding sc hold further abx dispo: home today if tolerates po Subjective: egd unremarkable Objective: Vital Signs Temp Pulse Resp BP Pulse Ox 36.5 C 60 22 H 104/50 L 96 11/04/17 14:07 11/04/17 13:28 11/04/17 14:15 11/04/17 14:01 11/04/17 14:15 11/03/17 11/04/17 11/05/17 05:59 05:59 05:59 Intake Total 2518 450 Output Total 600 950 Balance 1918 -500 - Physical Exam Constitutional: no apparent distress, appears nourished Eyes: PERRL, anicteric sclera Ears, Nose, Mouth, Throat: moist mucous membranes, hearing normal Cardiovascular: regular rate and rhythym, no murmur, rub, or gallop Respiratory: no respiratory distress, no rales or rhonchi Gastrointestinal: normoactive bowel sounds, soft, non-tender abdomen Genitourinary: no bladder fullness Skin: warm, mottled Musculoskeletal: full muscle strength Neurologic: AAOx3 ICD10 Worksheet Patient Problems: Problems Problem Status Onset Gastroparesis Acute Intractable nausea and vomiting Acute
--- NOTE | 2017-11-04 15:06 | ASMTCMCOM ---
CM Note CM Note Notes: Anticipate pt will DC with no needs. Date Signed: 11/04/2017 03:05 PM Electronically Signed By:Suzette Montana LCSW
[2017-11-04 15:15] VITALS: BP 104/57
--- NOTE | 2017-11-04 16:42 | GDS ---
[f rep st] DISCHARGE SUMMARY DISCHARGE DIAGNOSES: 1. Gastroparesis. 2. Nausea and vomiting. 3. Constipation. Please see admission history and physical by Dr. Charis Pratt. The patient presented with nausea a nd vomiting that had gone on for few weeks. She has a history of gastroparesis and constipation, aracely t sounds like going back to the time middle school. She had a CT that showed normal appendix and mild constipation. She was seen by GI who did an upper endoscopy which was unremarkable. She had UA not consistent with urinalysis. She also has a history of urinary retention, and has been self cathing; although her need for that has decreased of late. She is discharged home with mag citrate as well as plans to continue her outpatient followup with GI. /[id number]/MODL
== END 2017-11-04 17:37 | disposition home or self-care (01) ==
LOC: F1N 20:13
PROVIDERS: ADMIT Internal Medicine; ATTEND Internal Medicine
DX: K31.84 Gastroparesis (principal); R11.2 Nausea with vomiting, unspecified; N39.0 Urinary tract infection, site not specified; K59.00 Constipation, unspecified
CPT/HCPCS: 43239; 74177; 96361; 96365; 96375; 99285; G0378; J0696; J1100; J1200; J1630; J2405; J2550; J2704; J2765; Q9967

== ENCOUNTER 2017-11-20 14:54 | Emergency (ER) | payer OTHER ==
[2017-11-20] MEDS ORDERED: KETOROLAC 15 MG/1 ML SDV IVP ONE (15:32)
[2017-11-20] MEDS ORDERED: LORazepam 2 MG/ML INJ IVP ONE (15:32)
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
[2017-11-20 16:22] LABS: PLATELET COUNT 287 10^3/uL (150-400)
[2017-11-20 17:11] VITALS: BP 100/59
== END 2017-11-20 17:11 | disposition home or self-care (01) ==
DX: S16.1XXA Strain of muscle, fascia and tendon at neck level, initial encounter (principal); V49.40XA Driver injured in collision with unspecified motor vehicles in traffic accident, initial encounter; Y92.410 Unspecified street and highway as the place of occurrence of the external cause; Y99.8 Other external cause status; Y93.89 Activity, other specified
CPT/HCPCS: 96374; J1885; J2060